=== PATIENT | female | born 2000 | race African-American/Black ===

== ENCOUNTER 2024-12-09 09:38 | Emergency (ER) | payer MEDICAID ==
[~2024-12-09] VITALS: Ht 154.9 cm; Wt 45.0 kg
[2024-12-09 09:40] VITALS: O2SAT 97
[2024-12-09 09:45] VITALS: BP 112/55; PULSE 82; RESP 16; TEMP 36.9; O2SAT 97
[2024-12-09] MEDS ORDERED: DOXY100T28 MT (10:24)
[2024-12-09] MEDS ORDERED: ERYT1OIN6 EACHEYE (10:24)
[2024-12-09] MEDS ORDERED: DIPH25TA62 PO (10:24)
[2024-12-09] MEDS: METHYLPREDNISOLONE SOD SUCC 125MG/2ML (ACT-O-VIAL) IM NR (10:50)
== END 2024-12-09 10:52 | disposition home or self-care (01) ==
LOC: ER 09:38
DX: H01.009 Unspecified blepharitis unspecified eye, unspecified eyelid (principal); L73.9 Follicular disorder, unspecified; Z88.0 Allergy status to penicillin; J45.909 Unspecified asthma, uncomplicated
CPT/HCPCS: 99283; 81025; 96372; J2919

== ENCOUNTER 2024-12-12 14:10 | Emergency (ER) | payer MEDICAID ==
[~2024-12-12] VITALS: Ht 157.5 cm; Wt 48.0 kg
[~2024-12-12 14:10] MED LIST: DIPH25TA62 PO; DOXY100T28 MT; ERYT1OIN6 EACHEYE
[2024-12-12 14:27] VITALS: O2SAT 100
[2024-12-12] MEDS ORDERED: FAMO40TA70 MT (14:45)
[2024-12-12] MEDS ORDERED: DIPH25CA83 MT (14:45)
[2024-12-12] MEDS ORDERED: P20 PO (14:45)
[2024-12-12] MEDS: DIPHENHYDRAMINE 25MG CAPSULE PO STA (14:54)
[2024-12-12] MEDS: PREDNISONE 20MG TABLET PO STA (14:54)
[2024-12-12] MEDS: FAMOTIDINE 20MG TABLET PO STA (14:54)
[2024-12-12 14:56] VITALS: BP 100/59; PULSE 73; RESP 16; TEMP 36.9; O2SAT 100
== END 2024-12-12 14:56 | disposition home or self-care (01) ==
LOC: ER 14:10
DX: L29.9 Pruritus, unspecified (principal); J45.909 Unspecified asthma, uncomplicated; Z88.0 Allergy status to penicillin
CPT/HCPCS: 99284; Q0163; J7512

== ENCOUNTER 2024-12-21 08:40 | Emergency (ER) | payer MEDICAID ==
[~2024-12-21] VITALS: Ht 154.9 cm; Wt 46.0 kg
[~2024-12-21 08:40] MED LIST changes: +DIPH25CA83 MT; +FAMO40TA70 MT; +P20 PO
[2024-12-21 08:45] VITALS: O2SAT 99
[2024-12-21] MEDS ORDERED: [UNRECOGNIZED DRUG - CODE] MT (10:12)
[2024-12-21] MEDS ORDERED: SLS TP (10:12)
[2024-12-21] MEDS ORDERED: CLOT15CR27 TP (10:18)
[2024-12-21 10:42] VITALS: BP 106/72; PULSE 82; RESP 18; TEMP 36.8; O2SAT 100
== END 2024-12-21 10:44 | disposition home or self-care (01) ==
LOC: ER 08:40
DX: B35.0 Tinea barbae and tinea capitis (principal); B35.4 Tinea corporis; J45.909 Unspecified asthma, uncomplicated; Z79.52 Long term (current) use of systemic steroids; Z88.0 Allergy status to penicillin
CPT/HCPCS: 99283